=== PATIENT | male | born 1985 | race Two or more races ===

== ENCOUNTER 2017-01-27 14:08 | Emergency (ER) | payer MEDICAID, OTHER ==
[~2017-01-27] VITALS: Ht 177.8 cm; Wt 74.8 kg
[2017-01-27] MEDS ORDERED: Lidocaine 1% MPF 10mg/ml 5ml ONE (15:21)
--- NOTE | 2017-01-27 15:51 | Emergency Room Report ---
History of Present Illness General Chief Complaint: Male Urogenital Problems Source: Patient Present Illness HPI 32-year-old male presents emergency department complaining of dysuria x1 week. Patient reports recent unprotected intercourse in addition to white penile discharge times one day. Patient reports intercourse anal and vaginal intercourse prior to onset of symptoms. Patient denies nausea, vomiting, fevers , chills, abdominal pain. denies joint pain. he denies immunocompromise. Denies hematuria or flank pain. Denies CP, Palpitations, LOC, AMS, dizziness, Changes in Vision, Sensation, paresthesias, or a sudden severe headache. Allergies: Coded Allergies: No Known Allergies (Unverified , 10/27/14) Patient History Past Medical History: see triage record Past Surgical History: none Pertinent Family History: none Reviewed Nursing Documentation: PMH: Agreed, PSxH: Agreed Nursing Documentation-PMH Past Medical History: No Stated History Review of Systems All Other Systems: negative except mentioned in HPI Physical Exam Vital Signs Date Time Temp Pulse Resp B/P Pulse Ox O2 Delivery O2 Flow Rate FiO2 01/27/17 15:01 97.5 75 16 142/77 100 Room Air Sp02 EP Interpretation: reviewed, normal General Appearance: no apparent distress, alert, GCS 15, non-toxic Head: normocephalic, atraumatic Eyes: bilateral eye PERRL, bilateral eye normal inspection ENT: hearing grossly normal, normal pharynx, no angioedema, normal voice Neck: full range of motion, supple/symm/no masses Respiratory: chest non-tender, lungs clear, normal breath sounds, speaking full sentences Cardiovascular #1: regular rate, rhythm, no edema Gastrointestinal: non tender, soft, no guarding, no rebound Rectal: deferred Genitourinary: normal inspection, no CVA tenderness Musculoskeletal: back normal, gait/station normal, normal range of motion, non- tender Neurologic: alert, oriented x3, responsive, motor strength/tone normal, sensory intact, normal gait, speech normal Psychiatric: judgement/insight normal, memory normal, mood/affect normal Skin: normal color, no rash, warm/dry, well hydrated Lymphatic: no adenopathy Medical Decision Making PA Attestation Dr. boles is my supervising Physician whom patient management has been discussed with. Diagnostic Impression: Primary Impression: Urethritis Additional Impression: Urinary tract infection Qualified Codes: N30.00 - Acute cystitis without hematuria ER Course 32-year-old male presents emergency department complaining of dysuria x1 week. Patient reports recent unprotected intercourse in addition to white penile discharge times one day. Patient reports intercourse anal and vaginal intercourse prior to onset of symptoms. Patient denies nausea, vomiting, fevers , chills, abdominal pain. denies joint pain. he denies immunocompromise. Denies hematuria or flank pain. Denies CP, Palpitations, LOC, AMS, dizziness, Changes in Vision, Sensation, paresthesias, or a sudden severe headache. Ddx considered but are not limited to UTi , STI, G & C, trichomonas, Vital signs: are WNL, pt. is afebrile H&PE are most consistent with high risk exposure to venereal disease, will treat prophylactically. ORDERS: - UA: many bacteria, elevated WBC's and leuks consistent also with UTI ED INTERVENTIONS: -250mg Rocephin IM DISCHARGE: At this time pt. is stable for d/c to home. Will provide printed patient care instructions, and any necessary prescriptions. Care plan and follow up instructions have been discussed with the patient prior to discharge. Labs Test 01/27/17 16:20 Urine Color Yellow Urine Appearance Slightly cloudy Urine pH 6.5 (4.5-8.0) Urine Specific [place] 1.020 (1.005-1.035) Urine Protein 3+ (NEGATIVE) Urine Glucose (UA) Negative (NEGATIVE) Urine Ketones 3+ (NEGATIVE) Urine Occult Blood 3+ (NEGATIVE) Urine Nitrite Negative (NEGATIVE) Urine Bilirubin Negative (NEGATIVE) Urine Urobilinogen 8 MG/DL (0.0-1.0) Urine Leukocyte Esterase 3+ (NEGATIVE) Urine RBC 5-10 /HPF (0 - 0) Urine WBC 20-30 /HPF (0 - 0) Urine Squamous Epithelial Cells None /LPF (NONE/OCC) Urine Bacteria Moderate /HPF (NONE) Last Vital Signs Date Time Temp Pulse Resp B/P Pulse Ox O2 Delivery O2 Flow Rate FiO2 01/27/17 15:01 97.5 75 16 142/77 100 Room Air Disposition: HOME, SELF-CARE Condition: Stable Scripts Cephalexin* (KEFLEX*) 500 Mg Capsule 500 MG ORAL EVERY 12 HOURS for 7 Days, #14 CAP 0 Refills Prov: Aaliyah Mcgill P.Xin 7/11/17 Doxycycline Hyclate* (VIBRAMYCIN*) 100 Mg Capsule 100 MG ORAL EVERY 12 HOURS for 7 Days, #14 CAP 0 Refills Prov: Aaliyah Mcgill 01/27/17 Referrals: DONNIE LUCIO [facility] PLN,REFERRI (PCP) Patient Instructions: Urethritis, Adult, Urinary Tract Infection Additional Instructions: Take medications as directed. Follow up with a Primary Care Provider in 3-5 days, even if your symptoms have resolved. --Please review list of primary care clinics, if you do not already have a primary care provider Return sooner to ED if new symptoms occur, or current symptoms become worse. - Please note that this Emergency Department Report was dictated using iKaazscraper operator technology software, occasionally this can lead to erroneous entry secondary to interpretation by the dictation equipment. Aaliyah Mcgill Jan 27, 2017 15:51
[2017-01-27] MEDS ORDERED: VIBRAMYCIN100 MG ORAL (16:28)
[2017-01-27 16:38] LABS: APPEARANCE,URINE SLIGHTLY CLOUDY; KETONES,URINE 3+ (NEGATIVE); LEUKOCYTE ESTERASE ,URINE 3+ (NEGATIVE); NITRITE,URINE NEGATIVE (NEGATIVE); PH,URINE 6.5 (4.5-8.0); PROTEIN,URINE 3+ (NEGATIVE); UROBILINOGEN,URINE 8 MG/DL (0.0-1.0)
[2017-01-27 16:55] LABS: BACTERIA,URINE MODERATE /HPF; WBC,URINE 20-30 /HPF (0 - 0)
[2017-01-27] MEDS ORDERED: CEPHALEXIN500 MG ORAL (16:55)
[2017-01-27 17:00] VITALS: BP 142/77
[2017-01-27 17:11] VITALS: BP 142/77
== END 2017-01-27 17:12 | disposition home or self-care (01) ==
LOC: EMR 15:20
DX: N30.00 Acute cystitis without hematuria (principal)
CPT/HCPCS: 81003; 87086; 99284; J0696

== ENCOUNTER 2017-03-04 08:08 | Emergency (ER) | payer OTHER ==
[~2017-03-04] VITALS: Ht 177.8 cm; Wt 77.1 kg
[~2017-03-04 08:08] MED LIST: CEPHALEXIN500 MG ORAL; VIBRAMYCIN100 MG ORAL
[2017-03-04] MEDS ORDERED: NKM (08:19)
[2017-03-04 08:24] VITALS: BP 157/93
--- NOTE | 2017-03-04 08:54 | Emergency Room Report ---
History of Present Illness General Chief Complaint: Male Urogenital Problems Source: Patient Present Illness HPI 32 yo M pw 3 days of burning on urination / penile DC. denies hematuria, fever or chills. states he was last sexually active 1 jmo ago did not use protection. +thick yellow DC from penis. denies lesion. denies hx ofd stds Allergies: Coded Allergies: No Known Allergies (Unverified , 10/27/14) Patient History Past Medical History: none Past Surgical History: none Pertinent Family History: none Nursing Documentation-PMH Past Medical History: No Stated History Review of Systems Genitourinary: Reports: discharge, dysuria All Other Systems: negative except mentioned in HPI Physical Exam Vital Signs Date Time Temp Pulse Resp B/P Pulse Ox O2 Delivery O2 Flow Rate FiO2 03/04/17 08:12 97.5 73 18 157/93 98 Room Air General Appearance: normal inspection, well appearing, no apparent distress, alert, GCS 15, non-toxic Head: normocephalic, atraumatic Eyes: bilateral eye EOMI, bilateral eye PERRL, bilateral eye normal inspection ENT: normal ENT inspection, normal pharynx, normal voice, moist mucus membranes Neck: normal inspection, full range of motion, supple, no bony tend Respiratory: normal inspection, lungs clear, normal breath sounds, no respiratory distress, no retraction, no wheezing, speaking full sentences, chest symmetrical Cardiovascular #1: normal inspection, regular rate, rhythm, no edema, normal capillary refill Gastrointestinal: normal inspection, non tender, soft, non-distended, no guarding Genitourinary: no CVA tenderness Musculoskeletal: normal inspection, back normal, normal range of motion, non- tender Neurologic: normal inspection, alert, oriented x3, responsive, motor strength/ tone normal, sensory intact, normal gait, speech normal Medical Decision Making Diagnostic Impression: Primary Impression: Concern about STD in male without diagnosis ER Course 32yo M with dysuria/DC likely STD plan: ua, ceftriaxone and azithro disposition: pt to follow up with pmd within 5 days strict return prec d/w pt Last Vital Signs Date Time Temp Pulse Resp B/P Pulse Ox O2 Delivery O2 Flow Rate FiO2 03/04/17 08:12 97.5 73 18 157/93 98 Room Air Disposition: HOME, SELF-CARE Condition: Stable Patient Instructions: Sexually Transmitted Disease, Urethritis, Adult RetinoCalosD. Mar 04, 2017 08:54
[2017-03-04] MEDS ORDERED: Azithromycin 250mg tab ORAL ONE (09:00)
[2017-03-04] MEDS ORDERED: Lidocaine 1% MPF 10mg/ml 5ml ONE (09:13)
[2017-03-04 09:15] LABS: APPEARANCE,URINE TURBID; KETONES,URINE 1+ (NEGATIVE); LEUKOCYTE ESTERASE ,URINE 3+ (NEGATIVE); NITRITE,URINE NEGATIVE (NEGATIVE); PH,URINE 6 (4.5-8.0); PROTEIN,URINE 1+ (NEGATIVE); UROBILINOGEN,URINE 1 MG/DL (0.0-1.0)
[2017-03-04 09:31] LABS: BACTERIA,URINE FEW /HPF; SQUAMOUS EPITHELIAL CELL,UR OCCASIONAL /LPF (NONE/OCC); WBC,URINE 60-80 /HPF (0 - 0)
[2017-03-04 10:08] VITALS: BP 159/78
== END 2017-03-04 10:08 | disposition home or self-care (01) ==
LOC: EMR 09:24
DX: R30.0 Dysuria (principal); R36.9 Urethral discharge, unspecified
CPT/HCPCS: 81003; 87086; 87491; 96372; 99284; J0696; Q0144

== ENCOUNTER 2017-07-22 09:47 | Emergency (ER) | payer MEDICAID, OTHER ==
[~2017-07-22] VITALS: Ht 177.8 cm; Wt 77.1 kg
[~2017-07-22 09:47] MED LIST changes: +NKM
[2017-07-22 09:53] VITALS: BP 134/87
[2017-07-22 10:19] LABS: APPEARANCE,URINE SLIGHTLY CLOUDY; BILIRUBIN, URINE NEGATIVE (NEGATIVE); GLUCOSE, URINE (UA) NEGATIVE (NEGATIVE); KETONES,URINE NEGATIVE (NEGATIVE); LEUKOCYTE ESTERASE ,URINE 3+ (NEGATIVE); NITRITE,URINE NEGATIVE (NEGATIVE); PH,URINE 5 (4.5-8.0); PROTEIN,URINE 2+ (NEGATIVE); UROBILINOGEN,URINE NORMAL MG/DL (0.0-1.0)
[2017-07-22 10:29] LABS: COLOR,URINE YELLOW
[2017-07-22] MEDS ORDERED: Azithromycin 250mg tab ORAL ONE (10:45)
[2017-07-22] MEDS ORDERED: Lidocaine 1% MPF 10mg/ml 5ml INJ ONE (10:45)
--- NOTE | 2017-07-22 11:13 | Emergency Room Report ---
History of Present Illness General Chief Complaint: Male Urogenital Problems Source: Patient Present Illness HPI The patient states he had unprotected sex a couple days ago and has noticed burning with urination and he saw thick discharge coming from his penis. He states that he would like treatment for STD. He denies abdominal pain. Denies fever or chills. He has no other complaints. Allergies: Coded Allergies: No Known Allergies (Unverified , 10/27/14) Patient History Past Medical History: none, see triage record Reviewed Nursing Documentation: PMH: Agreed, PSxH: Agreed Nursing Documentation-PMH Past Medical History: No Stated History Review of Systems All Other Systems: negative except mentioned in HPI Physical Exam Vital Signs Date Time Temp Pulse Resp B/P (MAP) Pulse Ox O2 Delivery O2 Flow Rate FiO2 07/22/17 09:53 98.1 74 16 134/87 100 Room Air Sp02 EP Interpretation: reviewed, normal General Appearance: no apparent distress, alert, GCS 15, non-toxic Head: normocephalic, atraumatic Eyes: bilateral eye normal inspection, bilateral eye PERRL ENT: hearing grossly normal, normal pharynx, no angioedema, normal voice Neck: full range of motion, supple/symm/no masses Respiratory: no respiratory distress, no retraction, no accessory muscle use, speaking full sentences Rectal: deferred Genitourinary: normal inspection, no CVA tenderness Musculoskeletal: back normal, gait/station normal, normal range of motion Neurologic: alert, oriented x3, responsive, motor strength/tone normal, sensory intact, speech normal Psychiatric: judgement/insight normal, memory normal, mood/affect normal, no suicidal/homicidal ideation Skin: normal color, no rash, warm/dry, well hydrated Medical Decision Making Diagnostic Impression: Primary Impression: Urethritis ER Course The patient requests STD treatment. He is given Rocephin IM and azithromycin orally. He is instructed that this would not treat or diagnos HIV or syphilis. He was instructed to obtain these tests as an outpatient. He was educated on the dangers of a protective sex. He was given return precautions and followup instructions. Laboratory Tests Test 07/22/17 09:56 Urine Color Yellow Urine Appearance Slightly cloudy Urine pH 5 (4.5-8.0) Urine Specific [place] 1.020 (1.005-1.035) Urine Protein 2+ (NEGATIVE) H Urine Glucose (UA) Negative (NEGATIVE) Urine Ketones Negative (NEGATIVE) Urine Occult Blood 1+ (NEGATIVE) H Urine Nitrite Negative (NEGATIVE) Urine Bilirubin Negative (NEGATIVE) Urine Urobilinogen Normal MG/DL (0.0-1.0) Urine Leukocyte Esterase 3+ (NEGATIVE) H Urine RBC 0-2 /HPF (0 - 0) H Urine WBC 20-30 /HPF (0 - 0) H Urine Squamous Epithelial Cells Occasional /LPF Urine Bacteria Occasional /HPF (NONE) Last Vital Signs Date Time Temp Pulse Resp B/P (MAP) Pulse Ox O2 Delivery O2 Flow Rate FiO2 07/22/17 09:53 98.1 16 134/87 100 Room Air 07/22/17 09:53 74 Status: improved Disposition: HOME, SELF-CARE Condition: Improved YUE PORTILLO D.O. Jul 22, 2017 11:13
[2017-07-22 11:38] VITALS: BP 133/78
== END 2017-07-22 11:38 | disposition home or self-care (01) ==
LOC: EMR 10:56
DX: N34.2 Other urethritis (principal)
CPT/HCPCS: 81003; 87086; 96372; 99284; J0696; Q0144

== ENCOUNTER 2018-02-20 17:04 | Emergency (ER) | payer SELFPAY ==
[~2018-02-20] VITALS: Ht 177.8 cm; Wt 77.1 kg
[2018-02-20] MEDS ORDERED: Acetaminophen 500mg (ES) tab ORAL ONE ×2 (17:30)
--- NOTE | 2018-02-20 18:00 | Emergency Room Report ---
History of Present Illness General Chief Complaint: Lower Extremity Injury Source: Patient Present Illness HPI patient is a 33-year-old male with no significant past medical history ER brought in by ambulance complaining of 1 week of worsening left knee pain post injury in soccer. Patient reports that his team player kicked him on the left knee one week ago grading the pain 10 out of 10 intermittent waking up this morning with excess pain. Denies pain radiation, tingling, numbness. Patient is walking with a limp and has taken Advil with minimal improvement. Denies calf tenderness, chest pain, palpitations, headache and all other injuries. She has been repeatedly playing soccer and using his injured knee. Allergies: Coded Allergies: No Known Allergies (Unverified , 10/27/14) Patient History Past Medical History: see triage record Past Surgical History: none Pertinent Family History: none Immunizations: UTD Reviewed Nursing Documentation: PMH: Agreed; PSxH: Agreed Nursing Documentation-PMH Past Medical History: No Stated History Review of Systems All Other Systems: negative except mentioned in HPI Physical Exam Vital Signs Date Time Temp Pulse Resp B/P (MAP) Pulse Ox O2 Delivery O2 Flow Rate FiO2 02/20/18 16:59 97.7 60 18 158/85 97 Room Air 97.7 Sp02 EP Interpretation: reviewed, normal General Appearance: normal inspection, well appearing, no apparent distress, alert, GCS 15 Head: normocephalic, atraumatic Eyes: bilateral eye normal inspection, bilateral eye PERRL ENT: normal ENT inspection, hearing grossly normal Neck: normal inspection, full range of motion, supple Respiratory: normal inspection, chest non-tender, lungs clear, normal breath sounds, no rhonchi Cardiovascular #1: normal inspection, normal peripheral pulses, regular rate, rhythm, no edema, no murmur Cardiovascular #2: 2+ dorsalis pedis (R), 2+ dorsalis pedis (L) Gastrointestinal: normal inspection, soft Rectal: deferred Genitourinary: deferred Musculoskeletal: back normal, digits/nails normal, no calf tenderness, pelvis stable, decreased range of motion - left knee has decreased range of motion motion with bending, Seth's Sign negative, other - Some joints laxity is noted on left knee mcburney's negative, no atnerior drawer sign, tender - Tenderness noted on the left medial meniscus Neurologic: normal inspection, alert, oriented x3 Psychiatric: normal inspection, judgement/insight normal, memory normal Skin: normal inspection, normal color, no rash Lymphatic: normal inspection, no adenopathy Procedures Critical Care Time Critical Care Time knee brace applied Medical Decision Making PA Attestation All patient's diagnosis and treatment plans were reviewed and discussed with my supervising physician Diagnostic Impression: Primary Impression: Injury of meniscus of knee Additional Impression: Knee pain ER Course patient is a 33-year-old male with no significant past medical history ER brought in by ambulance complaining of 1 week of worsening left knee pain post injury in soccer. Patient reports that his team player kicked him on the left knee one week ago grading the pain 10 out of 10 intermittent waking up this morning with excess pain. Denies pain radiation, tingling, numbness. Patient is walking with a limp and has taken Advil with minimal improvement. Denies calf tenderness, chest pain, palpitations, headache and all other injuries. She has been repeatedly playing soccer and using his injured knee. Ddx considered but are not limited to Left meniscus tear, contusion of the knee , knee fracture Vital signs: are WNL, pt. is afebrile H&PE are most consistent with meniscus tear and left knee contusion ORDERS: Tylenol 500, left knee x-ray ED INTERVENTIONS: Tylenol 500 DISCHARGE: At this time pt. is stable for d/c to home. Will provide printed patient care instructions, and any necessary prescriptions. Care plan and follow up instructions have been discussed with the patient prior to discharge. follow-up with orthopedic and PCP for further imaging possible MRI needed. Strenuous physical activity. Other X-Ray Diagnostic Results Other X-Ray Diagnostic Results : X-Ray ordered: left knee # of Views/Limited Vs Complete: 2 View, 3 View Indication: Swelling EP Interpretation: Yes PA Xray: Interpretation reviewed, by supervising MD, and agrees with findings. Interpretation: no dislocation, no soft tissue swelling Impression: No acute disease Electronically Signed by: Giovanni Chun PA-C Last Vital Signs Date Time Temp Pulse Resp B/P (MAP) Pulse Ox O2 Delivery O2 Flow Rate FiO2 02/20/18 16:59 97.7 60 18 158/85 97 Room Air 97.7 Disposition: HOME, SELF-CARE Condition: Stable Scripts Naproxen* (NAPROXEN*) 500 Mg Tablet 500 MG ORAL TWICE A DAY for 30 Days, #60 TAB Prov: Giovanni Murray 02/20/18 Referrals: NOT CHOSEN [facility]/MD,REFERRING (PCP) Patient Instructions: Knee Ligament Injury, Arthroscopy, Meniscus Injury Additional Instructions: follow-up with dorsal and CT for further imaging possible and take medications as directed and avoid strenuous physical activity rests and elevates arthritis between he and I Giovanni Murray Feb 20, 2018 17:59
[2018-02-20] MEDS ORDERED: NAPROXEN500 M2 ORAL (18:28)
[2018-02-20 18:32] VITALS: BP 129/81
--- NOTE | 2018-02-20 18:47 | Diagnostic Imaging Report ---
EXAM: XR Left Knee, 3 views CLINICAL HISTORY: TRAUMA TECHNIQUE: Three views of the left knee. COMPARISON: No relevant prior studies available. FINDINGS: Bones/joints: No acute displaced fracture or dislocation. No significant joint effusion. Soft tissues: Unremarkable. IMPRESSION: No acute displaced fracture or dislocation.
== END 2018-02-20 18:33 | disposition home or self-care (01) ==
LOC: EDBD 17:04 → EMR 17:29
DX: S89.92XA Unspecified injury of left lower leg, initial encounter (principal); W51.XXXA Accidental striking against or bumped into by another person, initial encounter; Y93.66 Activity, soccer
CPT/HCPCS: 99283